=== PATIENT | male | born 1950 | race Caucasian/White ===

== ENCOUNTER 2017-03-10 06:59 | Emergency (ER) | payer SELFPAY ==
[~2017-03-10] VITALS: Ht 172.7 cm; Wt 65.5 kg
[~2017-03-10 06:59] MED LIST: ANTIDEPRESSANT; GABA-222 PO; METO25TA40; MORP30TA44 PO; [UNRECOGNIZED DRUG - CODE]
[2017-03-10 07:00] VITALS: TEMP 98.5; Ht 172.7 cm; Wt 65.5 kg
--- NOTE | 2017-03-10 07:15 | ERPDOC ---
Departure Disposition Decision Date: March 10, 2017 Disposition Decision Time: 08:10 Disposition: 01 DISCHARGED HOME, SELF-CARE Impression Impression Impression: Primary Impression: UTI (urinary tract infection) Urinary tract infection type: acute cystitis Hematuria presence: with hematuria Qualified Codes: N30.01 - Acute cystitis with hematuria Additional Impression: Hematuria due to cystitis Severity: Moderate Condition: Improved Seen By: Physician only Referrals: YOUR PHYSICIAN Patient Instructions: Hematuria (ED), Urinary Tract Infection in Men (ED) Problems/Meds/Labs Reviewed?: Yes Medications reviewed and manag: Yes Additional Instructions: You have bleeding, most likely caused by your urinary tract infection. Consider stopping or decreasing your daily aspirin to 81mg. Take the antibiotics as prescribed and follow up with your doctor. Leave the parkinson in place until you are seen by your doctor or the urologist. Follow up care ordered?: Yes Mental Status: Alert, Oriented Scripts Sulfamethoxazole/Trimethoprim (Bactrim Ds Tablet) 1 Each Tablet 1 TAB PO BID for 7 Days, #14 TAB Prov: FEBRUARYJASE Kong DO 03/10/17 HPI - Male General Chief Complaint: Male Urogenital Problems Stated Complaint: PEEING BLOOD Time Seen by Provider: 07:06 Source: patient Exam Limitations: no limitations HPI - Male Initial Comments 66yo man presents to the ER today with hematuria. Pts sx started abruptly yesterday afternoon. He has been peeing blood and passing clots ever since. Has not had a significant void since midnight. Pt has significant abdominal and penile pain. Has never had sx like this before. Was scheduled to have a liver US at the [facility] later this AM; this 2/2 elevated LFTs. Pt states no h/o hepatitis. Occurred At: home Onset: Rapid, Getting worse Duration: 12-24 hrs Pain Scale: Now & Worst: 8/10 Severity/Quality: cramping, fullness, sharpness Location: suprapubic Radiation: urethral Activities at Onset: none Prior Genitourinary Problems: none Modifying Factors: IMPROVES WITH: analgesics, lying down, urinating, WORSE WITH : movement, palpation Associated Symptoms: urinary frequency Hx of Similar Symptoms: No Allergies: Coded Allergies: No Known Drug Allergies (Verified Allergy, Unknown, 03/10/17) Past History Past Medical History Metabolic: hypertension Cardiac: CAD Musculoskeletal: back pain Psychological: depression Review of Systems GI Lower Abdomen: pain, see HPI General: frequency, hematuria, urgency Male: retention All other Systems All Other Systems: Reviewed and Negative Physical Exam General General Nourishment: well nourished, well developed, appears stated age, adult , thin, acute distress Vitals and Pain First Documented Vital Signs Date Time Temp Pulse Resp B/P Pulse Ox O2 Delivery O2 Flow Rate FiO2 03/10/17 07:00 98.5 141 20 145/68 98 Room Air Weight: Kilograms: Height (feet): Height (inches): Triage Pain Scale: Normal Exams: Head: Normocephalic w/o trauma Eyes: Pupils are PERRLA w/ EOMI, No scleral icterus, irritation ENMT: No facial trauma, nasal exudates, pharyngeal erythema Neck: Full range of motion, without adenopathy, JVD : Penis without lesions, testicles normal size, and orientation, without tenderness Lymphatic: No lymphadenopathy Musculoskeletal: No tenderness, or deformity noted Integumentary: No rashes, hives, or bruising noted Neurologic: Patient is alert, and oriented Psychiatric: Patient exhibits, appropriate attention Respiratory (brief) Respiratory: FOUND: clear all mirza, equal bilaterally, symmetrical, NOT FOUND : rales, wheezes Cardiovascular (brief) Cardiac: FOUND: regular rate, regular rhythm, NOT FOUND: click, gallop, murmur , pedal edema, peripheral edema, rub Capillary Refill: <2 sec Pulses: all distal extremities, equal, strong Abdomen (brief) Abdominal Brief: FOUND: bowel normo active x4, soft, tender (Over suprapubis), NOT FOUND: distended, hepatosplenomegaly, pulsatile mass Differential Diagnoses Considering: Hematuria, Hernia, Paraphimosis, Phimosis, Prostatitis, Pyelonephritis, Renal Colic, Trauma, Urethritis, Urinary Retention, Other ( Anticoagulation; hypocoagulation) Progress Results/Orders Orders Procedure Category Date Status Time Parkinson (Ed) EDM 03/10/17 Transmitted 07:06 Catheter Needs MARK 03/10/17 Complete Assessment 07:06 Bladder Scanner (Ed) EDM 03/10/17 Transmitted 07:06 INR LAB 03/10/17 Complete 07:06 PTT LAB 03/10/17 Complete 07:06 Hemagram - Cbc No Diff LAB 03/10/17 Complete Irrigate Parkinson (Ed) EDM 03/10/17 Transmitted 07:23 UA, LAB 5/23/17 Complete Dip&Micro(Complete) & 07:33 Urine Culture TORRES 03/10/17 In Process 08:06 Sulfamethoxazole/Trimethoprim PHA 03/10/17 Complete (Bactrim D 09:00 Lab Results Laboratory Tests Test 03/10/17 07:33 White Blood Count 12.4T/MM3 Red Blood Count 3.69M/MM3 Hemoglobin 12.6GM/DL Hematocrit 36.9% Mean Corpuscular Volume 100.0UM3 Mean Corpuscular Hemoglobin 34.1UUG Mean Corpuscular Hemoglobin Concent 34.1GM/DL RDW Standard Deviation 41.4FL Platelet Count 277T/MM3 Mean Platelet Volume 9.7UM3 Prothromb Time International Ratio 0.89 Activated Partial Thromboplast Time 24.5SEC Urine Collection Type Straight cath Urine Color Red Urine Turbidity Sl cloudy Urine pH 6.0 Urine Specific [place] 1.020 Urine Protein 3+ Urine Glucose (UA) Negative Urine Ketones Trace Urine Blood 3+ Urine Nitrite Positive Urine Bilirubin 1+ Urine Urobilinogen 1.0EU/DL Urine Leukocyte Esterase Trace Urine RBC Tntc/HPF Urine WBC 3-5/HPF Urine Squamous Epithelial Cells 0-5 Urine Bacteria None seen Urine Culture Indicated Cult reflexed &setup Medications Current ED Medications Trimethoprim/ Sulfamethoxazole (Bactrim Ds) 1 tab BID PO Last administered on t 08:26; Start 03/10/17 at 09:00; Stop 03/10/17 at 09:00; Status DC Progress Progress Return of dark red urine with parkinson placement. Will irrigate bladder to evaluate for briskness of bleed. Bladder scanner reveals appx 330mL in bladder. Pt cannot tolerate more than 30mL of irrigant at a time. Urine still returning dark, but beginning to clear. Pt now admitting that he has had similar sx in the past; has an appt with urology early next month. This is just the worst episode that he has had to date. 330mL in bladder, total of 300mL instilled. Return of 800mL total. No significant coag abns, but evidence of UTI. Will treat UTI and instruct pt to f/ u with PCM and urologist. Pt voiced understanding of dx, prognosis, tx, and f/u need. JASE GAN DO March 10, 2017 07:15
--- NOTE | 2017-03-10 07:20 | NUR ---
BLADDER SCAN BLADDER SCAN 339 ML
--- NOTE | 2017-03-10 07:30 | NUR ---
IRRIGATION IRRIGATED WITH 300CC STERILE WATER. PT NOTED DISCOMFORT WITH IRRIGATION
[2017-03-10 07:38] LABS: HCT - HEMATOCRIT 36.9 % (41-53); HGB - HEMOGLOBIN 12.6 GM/DL (13.5-17.5); MEAN CORPUSCULAR HGB 34.1 UUG (26-34); MEAN CORPUSCULAR HGB CONC(MCHC 34.1 GM/DL (31-37); MEAN PLATELET VOLUME 9.7 UM3 (9.4-12.4); RED BLOOD COUNT 3.69 M/MM3 (4.50-5.90); WBC - WHITE BLOOD COUNT 12.4 T/MM3 (4.5-11.0)
[2017-03-10 07:50] LABS: INR 0.89 (0.77-1.03); PROTHROMBIN TIME 9.8 SEC (9.48-12.52); PTT 24.5 SEC (24-36)
[2017-03-10 07:53] LABS: BLOOD, URINE 3+ (NEGATIVE); COLOR,URINE RED (YELLOW); LEUKOCYTE ESTERASE ,URINE TRACE (NEGATIVE); NITRITE,URINE POSITIVE (NEGATIVE)
[2017-03-10 08:05] LABS: RBC,URINE TNTC /HPF (0-3)
[2017-03-10 08:06] LABS: BACTERIA,URINE NONE SEEN (NEGATIVE); SQUAMOUS EPITHELIAL CELL,UR 0-5
[2017-03-10] MEDS ORDERED: TAMS-1 PO (08:10)
[2017-03-10] MEDS ORDERED: SULF1TAB42 PO (08:13)
--- NOTE | 2017-03-10 08:15 | NUR ---
OUTPUT TOTAL OUTPUT FROM CATH 800CC
--- NOTE | 2017-03-10 08:25 | NUR ---
CATH PT CHANGED TO LEG BAG AND INSTRUCTED PT ON USE OF LEG AND MONTANEZ BAD. PT VERBALIZED UNDERSTANDING
--- NOTE | 2017-03-10 08:29 | NUR ---
DISMISSAL DISMISSAL INSTRUCTIONS WITH RX FOR BACTRIM DS TO PT WITHOUT FURTHER QUESTIONS. PT LEFT DEPARTMENT AMBUALTORY IN NO DISTRESS
[2017-03-10 08:40] VITALS: BP 132/86; PULSE 99; RESP 16; O2SAT 94
[2017-03-10] MEDS ORDERED: SULFAMETHOXAZOLE/TMP 800mg/160mg TABLET PO SCH (09:00)
== END 2017-03-10 08:29 | disposition home or self-care (01) ==
LOC: ED 06:59
DX: N30.01 Acute cystitis with hematuria (principal)
CPT/HCPCS: 36415; 51703; 81001; 85027; 85610; 85730; 87086